=== PATIENT | male | born 1970 | race Caucasian/White ===

== ENCOUNTER 2019-05-25 23:58 | Emergency (ER) | payer SELFPAY ==
[~2019-05-25] VITALS: Ht 172.7 cm; Wt 127.0 kg
[2019-05-26 00:05] VITALS: BP_SYST 168
[2019-05-26 00:18] VITALS: BP_SYST 142
== END 2019-05-26 00:19 ==
LOC: SED 23:58
DX: R11.0 Nausea (principal); Z02.89 Encounter for other administrative examinations
CPT/HCPCS: 99283